=== PATIENT | female | born 1960 | race Caucasian/White ===

== ENCOUNTER 2017-02-09 16:19 | Observation (INO) | payer OTHER ==
[2017-02-09 16:44] VITALS: BMI 33.6
--- NOTE | 2017-02-09 17:18 | ED PDOC ---
Arrival/HPI - General Chief Complaint: Chest Pain Time Seen by Provider: 02/09/17 16:39 Historian: Patient - History of Present Illness Narrative History of Present Illness (Text): 02/09/17 17:18 56 year old female presents to the emergency department with chest pain since 12 :00 today. Patient describes a stabbing sensation in her chest followed by transient period of dizziness and blurry vision, along with L side weakness for several seconds, all of which resolved spontaneously. Patient also reports difficulty breathing before going to sleep for the past 3 weeks. Patient denies any fever, nausea, vomiting, abdominal pain, headache, or other associated symptoms. Time/Duration: 4-6 hours Symptom Onset: Sudden Symptom Course: Unchanged Modifying Factors (Text): None Associated Symptoms (Text): None Past Medical History - Provider Review Nursing Documentation Reviewed: Yes - Infectious Disease Hx of Infectious Diseases: None - Tetanus Immunization Tetanus Immunization: Unknown - Past Medical History Past Medical History: No Previous - Cardiac Hx Cardiac Disorders: Yes Hx Cardiac Arrhythmia: Yes (bradycardia) - Pulmonary Hx Respiratory Disorders: No - Neurological Hx Dizziness: Yes Hx Transient Ischemic Attacks (TIA): Yes (mini stroke) - HEENT Hx HEENT Disorder: Yes (WEARS RX GLASSES) - Renal Hx Renal Disorder: No - Endocrine/Metabolic Hx Hypothyroidism: Yes (?) Hx Systemic Lupus Erythematosus: (positive lupus test?) - Hematological/Oncological Hx Blood Disorders: No - Integumentary Other/Comment: Left breast lipoma was excised. - Musculoskeletal/Rheumatological Hx Falls: No - Gastrointestinal Hx Gastroesophageal Reflux: Yes - Psychiatric Hx Depression: Yes Hx Substance Use: No - Past Surgical History Past Surgical History: No Previous - Surgical History Hx Cholecystectomy: Yes Hx Hysterectomy: Yes Other/Comment: Excision of left breast lipoma. - Anesthesia Hx Anesthesia: Yes Hx Anesthesia Reactions: No - Suicidal Assessment Feels Threatened In Home Enviroment: No Family/Social History - Physician Review Nursing Documentation Reviewed: Yes Family/Social History: Unknown Family HX Smoking Status: Light Smoker < 10 Cigarettes Daily Hx Alcohol Use: No Hx Substance Use: No Hx Substance Use Treatment: No Allergies/Home Meds Allergies/Adverse Reactions: Allergies No Known Allergies Allergy (Verified 02/09/17 16:44) Review of Systems - Review of Systems Eyes: Vision Changes (resolved) ENT: absent: Rhinorrhea Cardiovascular: Chest Pain Gastrointestinal: absent: Nausea, Vomiting Genitourinary Female: absent: Dysuria Musculoskeletal: absent: Back Pain Skin: absent: Rash Neurological: Dizziness (resolved) Endocrine: absent: Polyuria Psychiatric: absent: Depression Physical Exam Vital Signs Reviewed: Yes Vital Signs Temp Pulse Resp BP Pulse Ox 02/09/17 16:53 98.2 F 64 14 123/66 97 Temperature: Afebrile Blood Pressure: Normal Pulse: Regular Respiratory Rate: Normal Appearance: Positive for: Well-Appearing, Non-Toxic, Comfortable Pain Distress: None Mental Status: Positive for: Alert and Oriented X 3 - Systems Exam Head: Present: Atraumatic, Normocephalic Pupils: Present: PERRL Extroacular Muscles: Present: EOMI Conjunctiva: Present: Normal Mouth: Present: Moist Mucous Membranes Pharnyx: Present: Normal. No: ERYTHEMA, EXUDATE Neck: Present: Normal Range of Motion Respiratory/Chest: Present: Clear to Auscultation, Good Air Exchange. No: Respiratory Distress, Accessory Muscle Use Cardiovascular: Present: Regular Rate and Rhythm, Normal S1, S2. No: Murmurs Abdomen: Present: Normal Bowel Sounds. No: Tenderness, Distention, Peritoneal Signs Back: Present: Normal Inspection Upper Extremity: Present: Normal Inspection. No: Cyanosis, Edema Lower Extremity: Present: Normal Inspection. No: Edema Neurological: Present: GCS=15, CN II-XII Intact, Speech Normal Skin: Present: Warm, Dry, Normal Color. No: Rashes Psychiatric: Present: Alert, Oriented x 3, Normal Insight, Normal Concentration Medical Decision Making ED Course and Treatment: Impression: 56 year old female presents to the emergency department with chest pain since 12:00 today. Differential Diagnosis included but are not limited to: Cardiogenic near syncope vs TIA Plan: -- CT Head, Chest X-ray -- Labs -- Reassess and disposition Prior Visits: Notes and results from previous visits were reviewed. Patient last seen in the ED on 08/20/16 for chest pain and admitted to telemetry observation. Progress Notes: 02/09/17 20:45 Patient with history of TIA with symptoms concerning for TIA after possible CP. EKG with no changes c/w previous and brain CT with no acute findings. Initial labs are unremarkable. Will need additional observation on tele for cp with near syncope vs TIA. 02/09/17 20:53 NIHSS is zero - not a tpa candidate. - Lab Interpretations Lab Results: 02/09/17 17:18 02/09/17 17:18 Lab Results 02/09/17 17:18: WBC 8.6, RBC 4.76, Hgb 14.8, Hct 42.8, MCV 89.9, MCH 31.1, MCHC 34.6, RDW 14.0, Plt Count 237, MPV 11.0, Gran % 50.3, Lymph % (Auto) 40.1 H, [place] % (Auto) 7.2 H, Eos % (Auto) 2.2, Baso % (Auto) 0.2, Gran # 4.33, Lymph # 3.5 H, [place] # 0.6, Eos # 0.2, Baso # 0.02, PT 10.9, INR 1.01, APTT 47.7 H, D- Dimer, Quantitative 0.19, Sodium 141, Potassium 3.8, Chloride 102, Carbon Dioxide 31, Anion Gap 12, BUN 14, Creatinine 0.8, Est GFR ( Amer) > 60, Est GFR (Non-Af Amer) > 60, Random Glucose 96, Calcium 9.2, Magnesium 2.0, Total Bilirubin 0.5, AST 24, ALT 40, Alkaline Phosphatase 90, Lactate Dehydrogenase 409, Total Creatine Kinase 64, Troponin I < 0.01, NT-Pro-B Natriuret Pep 89.4, Total Protein 7.1, Albumin 3.8, Globulin 3.3, Albumin/ Globulin Ratio 1.2, Lipase 68 - RAD Interpretation Radiology Orders: 02/09/17 17:13 CHEST TWO VIEWS (PA/LAT) [RAD] Stat 02/09/17 17:16 Brain [HEAD W/O CONTRAST] [CT] Stat - EKG Interpretation EKG Interpretation (Text): 02/09/17 20:52 NSR @ 62; no new ST/T changes c/w previous; normal intervals, normal axis. Interpreted by ED Physician: Yes Type: 12 lead EKG Comparison: Similar to previous EKG (08/20/16) - Medication Orders Current Medication Orders: Aspirin (Ecotrin) 81 mg PO DAILY [facility] Enoxaparin Sodium (Lovenox) 40 mg SC DAILY [facility] PRN Reason: Protocol Pantoprazole Sodium (Protonix Inj) 40 mg IVP DAILY [facility] NIHSS Scale ([place]) Time Performed: 16:39 - How Severe is the Stoke Baseline Level of Consciousness: 0=Alert LOC to Questions: 0=Both comments correct LOC to commands: 0=Obeys both correctly Best Gaze: 0=Normal Visual: 0=No visual loss Facial: 0=Normal Motor Arm - Left: 0=No drift Motor Arm - Right: 0=No drift Motor Leg - Left: 0=No drift Motor Leg - Right: 0=No drift Limb Ataxia: 0=Absent Sensory: 0=Normal Best Language: 0=No aphasia Dysarthia: 0=Normal articulation Extinction & Inattention (Neglect): 0=Normal, no object Score: 0 Risk Level: No Stroke Risk - Scribe Statement The provider has reviewed the documentation as recorded by the Tali Hernandez Provider Scribe Attestation: All medical record entries made by the Tali were at my direction and personally dictated by me. I have reviewed the chart and agree that the record accurately reflects my personal performance of the history, physical exam, medical decision making, and the department course for this patient. I have also personally directed, reviewed, and agree with the discharge instructions and disposition. Disposition/Present on Arrival - Present on Arrival Any Indicators Present on Arrival: No History of DVT/PE: No History of Uncontrolled Diabetes: No Urinary Catheter: No History of Decub. Ulcer: No History Surgical Site Infection Following: None - Disposition Have Diagnosis and Disposition been Completed?: Yes Diagnosis: Near syncope, Chest pain, TIA (transient ischemic attack) Disposition: HOSPITALIZED Disposition Time: 19:30 Patient Plan: Observation, Telemetry Patient Problems: Current Active Problems Problem Status Diagnosed Near syncope Acute Condition: FAIR
[2017-02-09 18:05] LABS: ADD MANUAL DIFF? NO
[2017-02-09 18:09] LABS: BASO # 0.02 K/mm3 (0.0-2.0); BASO % 0.2 % (0.0-3.0); EOS # 0.2 (0.0-0.7); EOS % 2.2 % (1.5-5.0); GRAN # 4.33 (1.4-6.5); GRAN % 50.3 % (50.0-68.0); HEMATOCRIT 42.8 % (36.0-48.0); LYMPH # 3.5 (1.2-3.4); LYMPH % 40.1 % (22.0-35.0); MEAN CELL VOLUME 89.9 fL (80.0-105.0); MEAN CORPUSCULAR HEMOGLOBIN 31.1 pg (25.0-35.0); MEAN CORPUSCULAR HGB CONC 34.6 g/dl (31.0-37.0); MONO # 0.6 (0.1-0.6); MONO % 7.2 % (1.0-6.0); PLATELET COUNT 237 10^3/uL (120.0-450.0); WHITE BLOOD COUNT 8.6 10^3/ul (4.5-11.0)
[2017-02-09 18:22] LABS: INR 1.01 (0.93-1.08); PARTIAL THROMBOPLASTIN TIME 47.7 Seconds (23.7-30.8)
[2017-02-09 18:23] LABS: D DIMER 0.19 mg/L FEU (0-0.50)
[2017-02-09 18:24] LABS: ALB/GLOB RATIO 1.2 (1.1-1.8); ALKALINE PHOSPHATASE 90 U/L (38-133); ALT/SGPT 40 U/L (7-56); AST/SGOT 24 U/L (15-39); BILIRUBIN,TOTAL 0.5 mg/dL (0.2-1.3); BLOOD UREA NITROGEN 14 mg/dL (7-21); CALCIUM 9.2 mg/dL (8.4-10.5); CARBON DIOXIDE 31 mmol/L (21-33); CHLORIDE 102 mmol/L (98-107); GFR AFRICAN-AMERICAN > 60; GLUCOSE,RANDOM 96 mg/dL (70-110); LIPASE 68 U/L (23-300); POTASSIUM 3.8 mmol/L (3.6-5.0); SODIUM 141 mmol/L (132-148); TOTAL PROTEIN 7.1 g/dL (5.8-8.3)
[2017-02-09 18:35] LABS: TROPONIN I < 0.01 ng/mL
--- NOTE | 2017-02-09 19:51 | CT ---
EXAM: CT Head Without Intravenous Contrast CLINICAL HISTORY: 56 years old, female; Pain; Headache; Headache not specified; Additional info: Dizzy TECHNIQUE: Axial computed tomography images of the head/brain without intravenous contrast. This CT exam was performed using one or more of the following dose reduction techniques: automated exposure control, adjustment of the mA and/or kV according to patient size, and/or use of iterative reconstruction technique. EXAM DATE/TIME: 02/09/2017 5:16 PM COMPARISON: CT - HEAD W/O CONTRAST 08/20/2016 5:26:45 AM FINDINGS: Brain: There is mild prominence of sulci, gyri and ventricles, unchanged. There is no midline shift. There are basal ganglia calcifications. There are no intra-axial or extra-axial mass lesions or areas of hemorrhage. There are no abnormal fluid collections. Chung-white differentiation is maintained. Ventricles: See above. Bones: Cranial vault is intact. Soft tissues: unremarkable Sinuses: There is no acute sinusitis. Ears and mastoids: Middle ears and mastoids are unremarkable Orbits: Orbital contents are unremarkable. IMPRESSION: No acute intracranial abnormality
--- NOTE | 2017-02-09 19:53 | CARD ---
APPROVED REPORT EKG Measurement Heart [id number] <Conclusion> Normal sinus rhythm Nonspecific T wave abnormality Abnormal ECG
[2017-02-09 20:45] LABS: CHOLESTEROL 144 mg/dL (130-200)
--- NOTE | 2017-02-09 22:08 | CP.PCM.HP ---
<Ochoa Romero - Last Filed: 02/09/17 23:50> History of Present Illness - History of Present Illness History of Present Illness: cc: Dizziness HPI: Patient is a 56yo female with past medical history of TIA and arthritis that presents c/o dizziness and substernal chest pain that started this morning. Patient reported that she was driving in her car when she suddenly felt substernal, stabbing chest pain that was 10/10 in severity and radiated to her left arm. She reported that the chest pain subsided in less than a minute and she subsequently felt dizzy and experienced blurry vision and left sided weakness that quickly subsided. She denied loss of consciousness and reported that she was able to safely drive home. She reported that the chest pain is intermittent in nature and lasts less than 1-2 minutes in duration. She reported that the chest pain was reproducible on palpation and denied numbness, tingling, palpitations, SOB, fever, chills, cough, dysuria, frequency, urgency. 12 point ROS as per HPI above otherwise negative PMHx: TIA (~2 yrs ago), arthritis PSHx: hysterectomy, cholecystectomy Allergies: NKDA Social Hx: Unemployed, current smoker (~1/2ppd for over 30 yrs); Denies illicit drugs and alcohol use Family Hx: Mother: HTN, HLD, CAD; Father: lymphoma Present on Admission - Present on Admission Any Indicators Present on Admission: No Past Patient History - Infectious Disease Hx of Infectious Diseases: None - Tetanus Immunizations Tetanus Immunization: Unknown - Past Medical History & Family History Past Medical History?: Yes - Past Social History Smoking Status: Light Smoker < 10 Cigarettes Daily - CARDIAC Hx Cardiac Disorders: Yes Hx Cardia Arrhythmia: Yes (bradycardia) - PULMONARY Hx Respiratory Disorders: No - NEUROLOGICAL Hx Dizziness: Yes Hx Transient Ischemic Attacks (TIA): Yes (mini stroke) - HEENT Hx HEENT Problems: Yes (WEARS RX GLASSES) - RENAL Hx Chronic Kidney Disease: No - ENDOCRINE/METABOLIC Hx Hypothyroidism: Yes (?) Hx Systemic Lupus Erythematosus: (positive lupus test?) - HEMATOLOGICAL/ONCOLOGICAL Hx Blood Disorders: No - INTEGUMENTARY Other/Comment: Left breast lipoma was excised. - MUSCULOSKELETAL/RHEUMATOLOGICAL Hx Falls: No - GASTROINTESTINAL Hx Gastroesophageal Reflux: Yes - PSYCHIATRIC Hx Depression: Yes Hx Substance Use: No - SURGICAL HISTORY Hx Cholecystectomy: Yes Hx Hysterectomy: Yes Other/Comment: Excision of left breast lipoma. - ANESTHESIA Hx Anesthesia: Yes Hx Anesthesia Reactions: No Meds Allergies/Adverse Reactions: Allergies Allergy/AdvReac Type Severity Reaction Status Date / Time No Known Allergies Allergy Verified 02/09/17 16:44 Physical Exam - Constitutional Appears: Well, Non-toxic, No Acute Distress - Head Exam Head Exam: ATRAUMATIC, NORMAL INSPECTION, NORMOCEPHALIC - Eye Exam Eye Exam: EOMI, PERRL. absent: Conjunctival injection, Nystagmus, Scleral icterus - ENT Exam ENT Exam: Mucous Membranes Moist - Neck Exam Neck exam: Positive for: Normal Inspection. Negative for: Lymphadenopathy, Tenderness, Thyromegaly - Respiratory Exam Respiratory Exam: Clear to Auscultation Bilateral, NORMAL BREATHING PATTERN. absent: Accessory Muscle Use, Rales, Rhonchi, Wheezes - Cardiovascular Exam Cardiovascular Exam: RRR, +S1, +S2. absent: Clicks, Diastolic murmur, Gallop, JVD, Rubs, Systolic Murmur Additional comments: admitted to chest wall tenderness on palpation - GI/Abdominal Exam GI & Abdominal Exam: Normal Bowel Sounds, Soft. absent: Distended, Firm, Guarding, Rebound, Rigid, Tenderness - Extremities Exam Extremities exam: Positive for: normal inspection. Negative for: calf tenderness, pedal edema, tenderness - Neurological Exam Neurological exam: Alert, CN II-XII Intact, Oriented x3 - Psychiatric Exam Psychiatric exam: Normal Affect, Normal Mood - Skin Skin Exam: Dry, Intact, Normal Color, Warm Results - Vital Signs Recent Vital Signs: Last Vital Signs Temp 98.2 F 02/09/17 16:53 Pulse 64 02/09/17 16:53 Resp 14 02/09/17 16:53 BP 123/66 02/09/17 16:53 Pulse Ox 97 02/09/17 16:53 - Labs Result Diagrams: 02/09/17 17:18 02/09/17 17:18 Assessment & Plan - Assessment and Plan (Free Text) Assessment: 56yo female with history of TIA and arthritis presents c/o dizziness and substernal chest pain that started this morning Plan: 1. Chest pain/Pre-syncope -Labs unremarkable -Head CT revealed no intracranial pathology -CXR revealed no active disease -EKG revealed normal sinus rhythm with nonspecific T wave abnormality; no acute ST-T wave changes -Troponin negative x1, will trend -A1C, lipid panel, TSH pending -Orthostatic vital signs pending -Carotid doppler pending -Cardiology consulted - Dr. Wahl -Neurology consulted - Dr. Argueta -Continue with ASA 81 2. GI/DVT Prophylaxis -Protonix/Lovenox Patient seen and case discussed with attending, Dr. Villarreal - Date & Time Date: 02/09/17 Time: 22:10 <Mary Anne Villarreal - Last Filed: 02/10/17 05:27> Results - Vital Signs Recent Vital Signs: Last Vital Signs Temp 97.9 F 02/10/17 00:54 Pulse 65 02/10/17 02:00 Resp 18 02/10/17 00:54 BP 138/80 02/10/17 00:54 Pulse Ox 98 02/10/17 00:45 - Labs Result Diagrams: 02/09/17 17:18 02/09/17 17:18 Attending/Attestation - Attestation I have personally seen and examined this patient.: Yes I have fully participated in the care of the patient.: Yes I have reviewed all pertinent clinical information: Yes Notes (Text): 02/10/17 04:44 Patient was seen when she was in the ER in bed # bed # 20. Agree with history , physical examination, assessment and plan. This 56 year old woman with history of tobacco dependence, asthma, obesity, TIA, depression,GERD, bradycardia, spine arthritis, hystrectomy, cholecystectomy, breast lipoma excision , endoscopy 5 years ago, sciatica, C- Section x 2, was admitted with near syncope, chest pain, dizziness, her primary physician is Dr.Cesar James,has family history of lymphoma(Father),bladder cancer(Mother),maternal aunt(Pancreatic cancer), multiple members have CHD,DM, review of systems reveal that she gained 50 lbs in one year, has sweating sometimes, has sinus problems.
[2017-02-10 01:14] VITALS: RESP 18
[2017-02-10 06:52] VITALS: BP 122/73; TEMP 97.5; O2SAT 95
[2017-02-10 07:08] LABS: ADD MANUAL DIFF? NO
[2017-02-10 07:13] LABS: BASO # 0.03 K/mm3 (0.0-2.0); BASO % 0.4 % (0.0-3.0); EOS # 0.2 (0.0-0.7); EOS % 2.3 % (1.5-5.0); GRAN # 4.31 (1.4-6.5); GRAN % 52.4 % (50.0-68.0); HEMATOCRIT 44.1 % (36.0-48.0); LYMPH % 35.9 % (22.0-35.0); MEAN CELL VOLUME 89.8 fL (80.0-105.0); MEAN CORPUSCULAR HEMOGLOBIN 30.3 pg (25.0-35.0); MEAN CORPUSCULAR HGB CONC 33.8 g/dl (31.0-37.0); MEAN PLATELET VOLUME 10.7 fl (7.0-11.0); MONO # 0.7 (0.1-0.6); PLATELET COUNT 237 10^3/uL (120.0-450.0); RED CELL DISTRIBUTION WIDTH 14.2 % (11.5-14.5); WHITE BLOOD COUNT 8.2 10^3/ul (4.5-11.0)
[2017-02-10 07:34] LABS: ALB/GLOB RATIO 1.2 (1.1-1.8); ALKALINE PHOSPHATASE 97 U/L (38-133); ALT/SGPT 36 U/L (7-56); AST/SGOT 22 U/L (15-39); BILIRUBIN,TOTAL 0.6 mg/dL (0.2-1.3); BLOOD UREA NITROGEN 15 mg/dL (7-21); CALCIUM 8.7 mg/dL (8.4-10.5); CARBON DIOXIDE 24 mmol/L (21-33); CHLORIDE 108 mmol/L (98-107); GFR AFRICAN-AMERICAN > 60; GLUCOSE,RANDOM 99 mg/dL (70-110); POTASSIUM 4.2 mmol/L (3.6-5.0); SODIUM 141 mmol/L (132-148)
[2017-02-10 07:44] LABS: TROPONIN I < 0.01 ng/mL
--- NOTE | 2017-02-10 07:52 | RAD ---
HISTORY: cp COMPARISON: 08/20/2016 TECHNIQUE: Chest PA and lateral FINDINGS: LUNGS: No active pulmonary disease. Apparent on these shallow lung volume images PLEURA: No significant pleural effusion identified. No pneumothorax apparent. CARDIOVASCULAR: Possible minimal cardiomegaly -shallow lung volumes noted OSSEOUS STRUCTURES: Mild bilateral shoulder arthrosis Right humeral head benign appear upper bone islands VISUALIZED UPPER ABDOMEN: Normal. OTHER FINDINGS: None. IMPRESSION: No active pulmonary disease.
[2017-02-10] MEDS ORDERED: Enoxaparin 30 mg Syringe SC SCH (10:00)
[2017-02-10] MEDS ORDERED: Enoxaparin 40 mg Syringe SC SCH (10:01)
--- NOTE | 2017-02-10 10:55 | CON ---
DATE: 02/10/2017 SERVICE: Cardiology. CONSULTING PHYSICIAN: Dr. Ranjan Mcgowan. REASON FOR CONSULTATION: Cardiac evaluation, admitted with chest pain, dizziness. 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 Denies any further episode of chest pain or d yspnea on exertion or chest pain on exertion. PAST MEDICAL HISTORY: Significant for hypertension, hyperlipidemia. SOCIAL HISTORY: Denies smoking. Denies any history of alcohol abuse. The patient is [employer] [facility] FAMILY HISTORY: Significant for coronary artery disease in father and mother had coronary artery dis ease. CURRENT MEDICATIONS: The patient is taking atorvastatin and Naprosyn and aspirin. Previous cardiac workup as follows: The patient had echocardiography dated 08/21/2016 that showed ej ection fraction 60-65%, trace MR, trace TR, no vegetation or thrombus noted. The patient had a stres s test 08/21/2016, normal myocardial perfusion study, ejection fraction 73%. REVIEW OF SYSTEMS: As per HPI. PHYSICAL EXAMINATION: VITAL SIGNS: Temperature afebrile, heart rate 64, blood pressure 182/73. HEENT: PERRLA. Extraocular muscles intact. NECK: Supple. No carotid bruits. No thyromegaly. CHEST: Clear to auscultation. HEART: S1, S2 regular. ABDOMEN: Soft. EXTREMITIES: Clubbing and cyanosis negative. EKG normal sinus, heart rate 62, telemetry bradycardic 46. BLOOD WORKUP: As follows: WBC 8.2, hemoglobin 14.3, hematocrit 44.1, platelet count 237. Chemistry shows sodium 141, potassium 4.2, chloride 108, carbon dioxide 24, anion gap of 13, BUN 15, creatinin e 0.8. Troponin 0.01 x 3 negative. IMPRESSION: No evidence of acute coronary syndrome, no evidence of ischemia. Atypical chest pain. Recent stress test and echo are negative. RECOMMENDATION: Suggest baby aspirin. ____ telemetry. The patient is okay to be discharged and fol low up as outpatient. When reviewed the old computer patient does not need further cardiac workup. We will follow with you. Thank you, Dr. Treadwell, for providing us the opportunity in taking care of the patient. Ranjan Mcgowan MD cc: [id number] TT: 02/10/2017 10:55:06 Confirmation # [id number] Dictation # [id number]
--- NOTE | 2017-02-10 12:00 | CP.PCM.DIS ---
<Daron Burton - Last Filed: 02/10/17 18:59> Provider - Provider Date of Admission: 02/09/17 19:34 Attending physician: Max Treadwell MD Primary care physician: Magen James MD Consults: Cardio, Dr. Garcia Neuro Dr. Argueta Time Spent in preparation of Discharge (in minutes): 35 Diagnosis - Discharge Diagnosis (1) Chest pain Status: Acute (2) Dizziness Status: Acute Hospital Course - Lab Results Lab Results: Most Recent Lab Values WBC 8.2 10^3/ul (4.5-11.0) 02/10/17 06:30 RBC 4.91 10^6/uL (3.5-6.1) 02/10/17 06:30 Hgb 14.9 gm/dL (12.0-16.0) 02/10/17 06:30 Hct 44.1 % (36.0-48.0) 02/10/17 06:30 MCV 89.8 fL (80.0-105.0) 02/10/17 06:30 MCH 30.3 pg (25.0-35.0) 02/10/17 06:30 MCHC 33.8 g/dl (31.0-37.0) 02/10/17 06:30 RDW 14.2 % (11.5-14.5) 02/10/17 06:30 Plt Count 237 10^3/uL (120.0-450.0) 02/10/17 06:30 MPV 10.7 fl (7.0-11.0) 02/10/17 06:30 Gran % 52.4 % (50.0-68.0) 02/10/17 06:30 Lymph % (Auto) 35.9 % (22.0-35.0) H 02/10/17 06:30 Fergus % (Auto) 9.0 % (1.0-6.0) H 02/10/17 06:30 Eos % (Auto) 2.3 % (1.5-5.0) 02/10/17 06:30 Baso % (Auto) 0.4 % (0.0-3.0) 02/10/17 06:30 Gran # 4.31 (1.4-6.5) 02/10/17 06:30 Lymph # 3.0 (1.2-3.4) 02/10/17 06:30 Fergus # 0.7 (0.1-0.6) H 02/10/17 06:30 Eos # 0.2 (0.0-0.7) 02/10/17 06:30 Baso # 0.03 K/mm3 (0.0-2.0) 02/10/17 06:30 PT 10.9 Seconds (9.9-11.8) 02/09/17 17:18 INR 1.01 (0.93-1.08) 02/09/17 17:18 APTT 47.7 Seconds (23.7-30.8) H 02/09/17 17:18 D-Dimer, Quantitative 0.19 mg/L FEU (0-0.50) 02/09/17 17:18 Sodium 141 mmol/L (132-148) 02/10/17 06:30 Potassium 4.2 mmol/L (3.6-5.0) 02/10/17 06:30 Chloride 108 mmol/L (98-107) H 02/10/17 06:30 Carbon Dioxide 24 mmol/L (21-33) 02/10/17 06:30 Anion Gap 13 (10-20) 02/10/17 06:30 BUN 15 mg/dL (7-21) 02/10/17 06:30 Creatinine 0.8 mg/dL (0.5-1.4) 02/10/17 06:30 Est GFR ( Amer) > 60 02/10/17 06:30 Est GFR (Non-Af Amer) > 60 02/10/17 06:30 Random Glucose 99 mg/dL (70-110) 02/10/17 06:30 Calcium 8.7 mg/dL (8.4-10.5) 02/10/17 06:30 Magnesium 2.0 mg/dL (1.7-2.2) 02/09/17 17:18 Total Bilirubin 0.6 mg/dL (0.2-1.3) 02/10/17 06:30 AST 22 U/L (15-39) 02/10/17 06:30 ALT 36 U/L (7-56) 02/10/17 06:30 Alkaline Phosphatase 97 U/L (38-133) 02/10/17 06:30 Lactate Dehydrogenase 392 U/L (333-699) 02/10/17 06:30 Total Creatine Kinase 56 U/L (35-230) 02/10/17 06:30 Troponin I < 0.01 ng/mL 02/10/17 06:30 NT-Pro-B Natriuret Pep 89.4 pg/mL (0-450) 02/09/17 17:18 Total Protein 7.0 g/dL (5.8-8.3) 02/10/17 06:30 Albumin 3.8 g/dL (3.0-4.8) 02/10/17 06:30 Globulin 3.2 gm/dL 02/10/17 06:30 Albumin/Globulin Ratio 1.2 (1.1-1.8) 02/10/17 06:30 Triglycerides 137 mg/dL (35-160) 02/09/17 17:18 Cholesterol 144 mg/dL (130-200) 02/09/17 17:18 LDL Cholesterol Direct 74 mg/dL (0-129) 02/09/17 17:18 HDL Cholesterol 35 mg/dL (29-60) 02/09/17 17:18 Lipase 68 U/L (23-300) 02/09/17 17:18 TSH 3rd Generation 0.95 mIU/mL (0.46-4.68) 02/09/17 17:18 - Hospital Course Hospital Course: 56yo female with past medical history of TIA and arthritis that presents c/o dizziness and substernal chest pain that started this morning and lasted for a minute followed by left sided weakness that subsided quickly. During her hospital visit, she was worked up for ACS and possible stroke. Her EKG read NSR @ 62; no new ST/T changes c/w previous; normal intervals, normal axis. Her cardiac enzymes were negative x3. Her chest xray showed no active disease. For her possible stroke, her CT head was negative and she scored a 0 on the NIHSS scale. She was also evaluated by a neurologist, tilt wall supervisor, and physical therapy before being discharged. She was strongly urged to stop smoking and follow up with her primary care provider. - Date & Time of H&P Date of H&P: 02/10/17 Time of H&P: 07:10 Discharge Exam - Head Exam Head Exam: ATRAUMATIC, NORMAL INSPECTION, NORMOCEPHALIC - Eye Exam Eye Exam: EOMI, Normal appearance - ENT Exam ENT Exam: Mucous Membranes Moist - Neck Exam Neck exam: Full Rom - Respiratory Exam Respiratory Exam: Clear to PA & Lateral, NORMAL BREATHING PATTERN, UNREMARKABLE. absent: Rhonchi, Wheezes - Cardiovascular Exam Cardiovascular Exam: REGULAR RHYTHM, RRR, +S1, +S2. absent: JVD - GI/Abdominal Exam GI & Abdominal Exam: Normal Bowel Sounds, Unremarkable - Extremities Exam Extremities exam: full ROM - Back Exam Back exam: absent: CVA tenderness (L), CVA tenderness (R), paraspinal tenderness , rash noted - Neurological Exam Neurological exam: Alert, CN II-XII Intact, Normal Gait, Oriented x3 - Psychiatric Exam Psychiatric exam: Normal Affect, Normal Mood - Skin Skin Exam: Dry, Intact, Normal Color, Warm Discharge Plan - Discharge Medications Prescriptions: Aspirin [Ecotrin] 81 mg PO DAILY #30 tabec Atorvastatin [Lipitor] 20 mg PO DAILY #30 tab - Follow Up Plan Condition: FAIR Disposition: HOME/ ROUTINE Instructions: Chest Pain (ED), How to Stop Smoking (GEN), Cigarette Smoking and Your Health (GEN), Near Syncope (ED), Dizziness (GEN) Additional Instructions: Pt. is medically stable for discharge. Please follow up with your primary care provider, Dr. Jasmine Power within 1 week. Please start 81mg aspirin daily Please start Lipitor 20mg daily Please stop smoking Thank you for allowing us to take part in your care. Nursing If you begin to experience chest pain, shortness of breath, symptoms return, or any changes return to the emergency room or call 911. See care notes provided for further instructions. Referrals: Magen James [Primary Care Provider] - Russ Argueta MD [Staff Provider] - Ranjan Wahl MD [Staff Provider] - <Max Treadwell - Last Filed: 02/11/17 12:31> Provider - Provider Date of Admission: 02/09/17 19:34 Attending physician: Max Treadwell MD Primary care physician: Magen James MD Time Spent in preparation of Discharge (in minutes): 35 Hospital Course - Lab Results Lab Results: Most Recent Lab Values WBC 8.2 10^3/ul (4.5-11.0) 02/10/17 06:30 RBC 4.91 10^6/uL (3.5-6.1) 02/10/17 06:30 Hgb 14.9 gm/dL (12.0-16.0) 02/10/17 06:30 Hct 44.1 % (36.0-48.0) 02/10/17 06:30 MCV 89.8 fL (80.0-105.0) 02/10/17 06:30 MCH 30.3 pg (25.0-35.0) 02/10/17 06:30 MCHC 33.8 g/dl (31.0-37.0) 02/10/17 06:30 RDW 14.2 % (11.5-14.5) 02/10/17 06:30 Plt Count 237 10^3/uL (120.0-450.0) 02/10/17 06:30 MPV 10.7 fl (7.0-11.0) 02/10/17 06:30 Gran % 52.4 % (50.0-68.0) 02/10/17 06:30 Lymph % (Auto) 35.9 % (22.0-35.0) H 02/10/17 06:30 Fergus % (Auto) 9.0 % (1.0-6.0) H 02/10/17 06:30 Eos % (Auto) 2.3 % (1.5-5.0) 02/10/17 06:30 Baso % (Auto) 0.4 % (0.0-3.0) 02/10/17 06:30 Gran # 4.31 (1.4-6.5) 02/10/17 06:30 Lymph # 3.0 (1.2-3.4) 02/10/17 06:30 Fergus # 0.7 (0.1-0.6) H 02/10/17 06:30 Eos # 0.2 (0.0-0.7) 02/10/17 06:30 Baso # 0.03 K/mm3 (0.0-2.0) 02/10/17 06:30 PT 10.9 Seconds (9.9-11.8) 02/09/17 17:18 INR 1.01 (0.93-1.08) 02/09/17 17:18 APTT 47.7 Seconds (23.7-30.8) H 02/09/17 17:18 D-Dimer, Quantitative 0.19 mg/L FEU (0-0.50) 02/09/17 17:18 Sodium 141 mmol/L (132-148) 02/10/17 06:30 Potassium 4.2 mmol/L (3.6-5.0) 02/10/17 06:30 Chloride 108 mmol/L (98-107) H 02/10/17 06:30 Carbon Dioxide 24 mmol/L (21-33) 02/10/17 06:30 Anion Gap 13 (10-20) 02/10/17 06:30 BUN 15 mg/dL (7-21) 02/10/17 06:30 Creatinine 0.8 mg/dL (0.5-1.4) 02/10/17 06:30 Est GFR ( Amer) > 60 02/10/17 06:30 Est GFR (Non-Af Amer) > 60 02/10/17 06:30 Random Glucose 99 mg/dL (70-110) 02/10/17 06:30 Hemoglobin A1c 5.8 % (4.2-6.5) 02/09/17 17:18 Calcium 8.7 mg/dL (8.4-10.5) 02/10/17 06:30 Magnesium 2.0 mg/dL (1.7-2.2) 02/09/17 17:18 Total Bilirubin 0.6 mg/dL (0.2-1.3) 02/10/17 06:30 AST 22 U/L (15-39) 02/10/17 06:30 ALT 36 U/L (7-56) 02/10/17 06:30 Alkaline Phosphatase 97 U/L (38-133) 02/10/17 06:30 Lactate Dehydrogenase 392 U/L (333-699) 02/10/17 06:30 Total Creatine Kinase 56 U/L (35-230) 02/10/17 06:30 Troponin I < 0.01 ng/mL 02/10/17 06:30 NT-Pro-B Natriuret Pep 89.4 pg/mL (0-450) 02/09/17 17:18 Total Protein 7.0 g/dL (5.8-8.3) 02/10/17 06:30 Albumin 3.8 g/dL (3.0-4.8) 02/10/17 06:30 Globulin 3.2 gm/dL 02/10/17 06:30 Albumin/Globulin Ratio 1.2 (1.1-1.8) 02/10/17 06:30 Triglycerides 137 mg/dL (35-160) 02/09/17 17:18 Cholesterol 144 mg/dL (130-200) 02/09/17 17:18 LDL Cholesterol Direct 74 mg/dL (0-129) 02/09/17 17:18 HDL Cholesterol 35 mg/dL (29-60) 02/09/17 17:18 Lipase 68 U/L (23-300) 02/09/17 17:18 TSH 3rd Generation 0.95 mIU/mL (0.46-4.68) 02/09/17 17:18 - Hospital Course Hospital Course: attending note; patient seen and examined with resident. Patient is a 56 year old female with past medical history of TIA and arthritis that presents c/o dizziness and substernal chest pain that started this morning and lasted for a minute followed by left sided weakness that subsided quickly. cardiac Enzymes negative. Patient had similar episode in august 2016. stress test negative on 08/23. CT head normal. Neurology evaluation appreciated. PT evaluation appreciated. Avoid NSAID. Complete smoking cessation is strongly advised. Follow-up with PMD Dr. dickey. diagnosis; Atypical chest pain Active smoking obesity
[2017-02-10 12:04] VITALS: PULSE 61
--- NOTE | 2017-02-10 12:13 | CON ---
DATE: 02/10/2017 CHIEF COMPLAINT: Dizziness. HISTORY OF PRESENT ILLNESS: This is a 56-year-old obese woman with history of hypertension, hyperlip idemia, is a smoker, smokes a half pack per day, who came in with chest pain, substernal, radiating d own to the arm while driving and she felt a little dizzy in terms of lightheadedness, but denies any spinning sensation of the room. Occasionally she gets a spinning sensation with sudden movements, bu t otherwise currently she is doing well, sitting on the edge of bed, walking around with no difficult y. Her CBC and CMP are unremarkable. Her CT head showed no acute intracranial abnormalities. She s aid she is no longer experiencing blurry vision. PAST MEDICAL HISTORY: History of arthritis, history of questionable TIA. PAST SURGICAL HISTORY: Hysterectomy and cholecystectomy. SOCIAL HISTORY: Unemployed. Currently a smoker, smokes half pack of cigarettes per day over the pas t 30 years. Denies any illicit drug use or ETOH abuse. FAMILY HISTORY: Mother has hypertension, hyperlipidemia. Father had lymphoma. REVIEW OF SYSTEMS: A 14-point review of systems is negative except for the HPI. ALLERGIES: No known drug allergies. MEDICATIONS: Reviewed via nurses' reconciliation sheet. PHYSICAL EXAMINATION: VITAL SIGNS: Temperature 97.5, pulse rate 64, blood pressure 122/73, respiratory rate 18, oxygen 95% via room air. GENERAL: The patient is sitting up in bed in no acute distress. HEENT: Atraumatic, normocephalic. PERRLA. Extraocular muscles intact. NECK: Supple, no JVD, no adenopathy noted. LUNGS: Clear to auscultation. No adventitious sounds. HEART: S1, S2, normal rate and rhythm. No murmurs, rubs, or gallops. ABDOMEN: Soft, nontender, nondistended. Bowel sounds are present. EXTREMITIES: No clubbing, no cyanosis. Peripheral pulses 2+ felt bilaterally. NEUROLOGIC: The patient is alert, oriented to person, place, month and year. Speech is fluent witho ut any errors. Cranial nerves II through XII are intact. MOTOR: Moves all extremities equally. Toes downgoing bilaterally. SENSORY: Light touch, pinprick, proprioception, vibration intact. DTRs are 2+ throughout. COORDINATION: Wvsids-qi-ftan intact. GAIT: Normal. LABORATORY DATA: CMP, CBC are unremarkable. Sodium is 141, potassium 4.2, chloride 108, carbon diox polo 24, BUN of 15, creatinine 0.8. ASSESSMENT AND PLAN: This is a 56-year-old smoker, history of hypertension, hyperlipidemia, who had some substernal chest pain, some mild dizziness and left arm numbness currently. Her symptoms are li katheryn secondary to underlying anxiety since she mentions that she was getting anxious when she was fee ling it. She denies any blurred vision, any dizziness or spinning sensation of room at this time. H er CT head showed no acute intracranial abnormalities. Neurologic exam is nonfocal. CBC, CMP are no rmal. At this time, I recommend to continue with aspirin 81 mg daily, Lipitor 20 mg p.o. daily and s moking cessation advised. At this time, she is clinically stable for discharge from my standpoint. Thank you for this consult. Will sign off. Russ Argueta MD cc: [id number] TT: 02/10/2017 12:12:56 Confirmation # [id number] Dictation # [id number] fannie
--- NOTE | 2017-02-10 18:28 | US ---
PROCEDURE: Bilateral carotid artery duplex ultrasound HISTORY: Carotid stenosis syncope PHYSICIAN(S): Pratik Gunderson MD. TECHNIQUE: Duplex sonography and color-flow Doppler were used to evaluate the carotid bifurcations and limited segments of the vertebral arteries bilaterally. FINDINGS: There is mild smooth hypoechoic plaque noted at the carotid bifurcations bilaterally. The peak systolic velocity in the proximal right internal carotid artery is 80 cm/sec. This corresponds to a 20 to 39% proximal right ICA stenosis. Normal systolic velocities are noted in the proximal right external carotid artery. There is antegrade flow in the right vertebral artery. The peak systolic velocity in the proximal left internal carotid artery is 63 cm/sec. This corresponds to a 20 to 39% proximal left ICA stenosis. Normal systolic velocities are noted in the proximal left external carotid artery. There is antegrade flow in the left vertebral artery. IMPRESSION: 1. Bilateral 20-39% proximal ICA stenoses. 2. Antegrade flow in both vertebral arteries.
== END 2017-02-10 18:49 | disposition home or self-care (01) ==
LOC: ED 16:19 → ERH 19:34 → 2RNO 02-10 00:36
PROVIDERS: ADMIT Internal Medicine; ATTEND Internal Medicine
DX: R07.89 Other chest pain (principal); R42 Dizziness and giddiness; R55 Syncope and collapse; K21.9 Gastro-esophageal reflux disease without esophagitis; E66.9 Obesity, unspecified; I10 Essential (primary) hypertension; E78.5 Hyperlipidemia, unspecified; F41.9 Anxiety disorder, unspecified; M19.90 Unspecified osteoarthritis, unspecified site; F17.210 Nicotine dependence, cigarettes, uncomplicated; Z86.73 Personal history of transient ischemic attack (TIA), and cerebral infarction without residual deficits; Z90.710 Acquired absence of both cervix and uterus; Z90.49 Acquired absence of other specified parts of digestive tract; Z82.49 Family history of ischemic heart disease and other diseases of the circulatory system; Z80.7 Family history of other malignant neoplasms of lymphoid, hematopoietic and related tissues
CPT/HCPCS: 36415; 70450; 71020; 80053; 80061; 82550; 83036; 83615; 83690; 83735; 83880; 84443; 84484; 85025; 85378; 85610; 85730; 93005; 93880; 97116; 97161; 99285; C9113; G0378; G8978; G8979; G8980; J1650